=== PATIENT | male | born 1975 | race Caucasian/White ===

== ENCOUNTER 2023-10-31 13:50 | Emergency (ER) | payer OTHER ==
[~2023-10-31] VITALS: Ht 170.2 cm; Wt 70.3 kg
[2023-10-31] MEDS ORDERED: LEVOTHYROXINE25 MCG PO (14:25)
[2023-10-31 15:51] LABS: HEMATOCRIT 39.6 % (39.0-48.0); HEMOGLOBIN 13.8 g/dL (13-16.00); MEAN CELL VOLUME 88.3 fL (80.0-100.00); MEAN CORPUSCULAR HEMOGLOBIN 30.9 pg (27.00-32.0); MEAN CORPUSCULAR HGB CONC 34.9 g/dl (32.0-36.0); PLATELET COUNT 213 K/uL (150-450); RED BLOOD COUNT 4.48 M/uL (4.00-6.00); RED CELL DISTRIBUTION WIDTH 13.2 % (11.5-14.5)
== END 2023-10-31 16:39 | disposition home or self-care (01) ==
LOC: ER 13:51
PROVIDERS: General Practice
DX: B34.9 Viral infection, unspecified (principal); J32.9 Chronic sinusitis, unspecified; Z20.822 Contact with and (suspected) exposure to COVID-19; E03.8 Other specified hypothyroidism